=== PATIENT | male | born 1960 | race Caucasian/White ===

== ENCOUNTER → 2019-08-26 12:12 | Outpatient (BNVA) | payer SELFPAY | PROVIDERS: PCP Nurse Practitioner Family; Visit Provider Nurse Practitioner Family | DX: Z12.11 Encounter for screening for malignant neoplasm of colon; I10 Essential (primary) hypertension; K21.9 Gastro-esophageal reflux disease without esophagitis; K76.0 Fatty (change of) liver, not elsewhere classified; Z12.5 Encounter for screening for malignant neoplasm of prostate; Z68.25 Body mass index [BMI] 25.0-25.9, adult; F17.211 Nicotine dependence, cigarettes, in remission | CPT/HCPCS: 80053; 80061; 85025; G0103 ==

== ENCOUNTER → 2021-03-01 13:19 | Outpatient (BNVA) | payer SELFPAY | PROVIDERS: PCP Nurse Practitioner Family; Visit Provider Nurse Practitioner Family | DX: F41.9 Anxiety disorder, unspecified (principal); G45.9 Transient cerebral ischemic attack, unspecified; I10 Essential (primary) hypertension; Z12.5 Encounter for screening for malignant neoplasm of prostate; K21.9 Gastro-esophageal reflux disease without esophagitis; Z12.11 Encounter for screening for malignant neoplasm of colon; R94.31 Abnormal electrocardiogram [ECG] [EKG]; I65.23 Occlusion and stenosis of bilateral carotid arteries; F10.11 Alcohol abuse, in remission; Z87.891 Personal history of nicotine dependence | CPT/HCPCS: 80053; 80061; 84443; 85379; 85651 ==

== ENCOUNTER 2021-03-03 22:04 | Emergency (ER) | payer SELFPAY ==
[2021-03-03 22:12] VITALS: PULSE 78; RESP 16; TEMP 36.6; O2SAT 97; BMI 28.1
[2021-03-04 00:16] VITALS: BP 172/108; PULSE 70; RESP 16; O2SAT 97
--- NOTE | 2021-03-04 00:27 | XRR_ITS ---
PROCEDURE INFORMATION: Exam: XR Chest Exam date and time: 03/04/2021 12:27 AM Age: 60 years old Clinical indication: Other: HTN TECHNIQUE: Imaging protocol: XR of the chest. Views: 1 view. COMPARISON: CT abdomen pelvis w con* [id number] 04/03/2018 10:47 AM FINDINGS: Lungs: Emphysematous lung changes. Reticular interstitial lung appearance. Negative for space consolidation. Pleural spaces: Unremarkable. No pleural effusion. No pneumothorax. Heart/Mediastinum: Mild cardiomegaly. Bones/joints: Unremarkable. XR/XR chest 1V portable [id number] IMPRESSION: 1. Cardiomegaly. 2. Emphysema. 3. No focal acute pulmonary disease.
--- NOTE | 2021-03-04 00:27 | CTR_ITS ---
PROCEDURE INFORMATION: Exam: CT Head Without Contrast Exam date and time: 03/04/2021 12:27 AM Age: 60 years old Clinical indication: Speech disturbance; Patient HX: Expressive aphasia episode 03/01 w HX of HTN non compliant w meds; Additional info: Stroke symptoms, HTN TECHNIQUE: Imaging protocol: Computed tomography of the head without contrast. Radiation optimization: All CT scans at this facility use at least one of these dose optimization techniques: automated exposure control; mA and/or kV adjustment per patient size (includes targeted exams where dose is matched to clinical indication); or iterative reconstruction. COMPARISON: No relevant prior studies available. RADIATION DOSE METRICS: Total DLP (mGy-cm): 830.49 FINDINGS: Brain: Large region of decreased attenuation in the left frontal lobe with lack of differentiation of ron matter and white matter interfaces and localized cerebral sulcal effacement. No intracranial hemorrhage. No midline shift of brain. Cerebral ventricles: No ventriculomegaly. Paranasal sinuses: Visualized sinuses are unremarkable. No fluid levels. Mastoid air cells: Visualized mastoid air cells are well aerated. Bones/joints: Unremarkable. No acute fracture. Soft tissues: Unremarkable. CT/CT head wo con* [id number] IMPRESSION: 1. Ischemic infarct in the left frontal lobe is suspected in the left middle cerebral artery vascular distribution. Brain MRI correlation is recommended. 2. Negative for intracranial hemorrhage.
--- NOTE | 2021-03-04 00:32 | W.ED.GENADLT ---
HPI - General Adult General: Chief complaint: General Medical Stated complaint: High Blood Pressure\Friday had stoke Time Seen by Provider: 03/04/21 00:02 History of Present Illness: HPI narrative: 60-year-old male with a history of hypertension. His notes that he had quit taking his blood pressure medication in July. He was seen on in the PCP office after having woken up with expressive aphasia. This has resolved. No other stroke symptoms such as dizziness, weakness, facial problems, or blurry vision. His physician ordered several outpatient tests, and placed him back on blood pressure medication including lisinopril 20, amlodipine 5, and clonidine for breakthrough hypertension. He has taken 2 clonidine today for hypertension, and despite this, has had elevated blood pressure. No return of any stroke symptoms. Onset (ago): day(s) Radiation: non-radiation Quality: other Pain Consistency: other Associated symptoms: Reports rash (Was placed on cephalexin after leukocytosis found); Deny chest pain, confusion, cough, diaphoresis, dyspnea, fevers/chills, headache(s), nausea, palpitations, syncope, vomiting or weakness Review of Systems Const: Denies: diaphoresis Card: Denies: chest pain, palpitations or syncope Resp: Denies: dyspnea GI: Denies: nausea or vomiting Skin/Breast: Reports: rash (Was placed on cephalexin after leukocytosis found) Neuro: Denies: headache(s) or confusion [facility] ED PFSH: Medical History (Updated 03/04/21 @ 02:19 by Matty Holliday DO) Anxiety Fatty infiltration of liver GERD (gastroesophageal reflux disease) Hx of pancreatitis Hx of urethral stricture Hypertension Surgical History Hx of appendectomy Social History Smoking and tobacco status: former smoker Second hand smoke exposure: No Alcohol intake: never Lives independently: Yes Household members: spouse Housing: House Marital status: Current occupational status: employed Current occupation: self History of recent travel: No Current gender identity: Male Physical Exam Const: GENERAL APPEARANCE: cooperative; not ill appearing ORIENTATION/CONSCIOUSNESS: Yes awake, Yes oriented to person and Yes oriented to place HENMT: COMMON NORMALS: normocephalic HEAD & SCALP: normocephalic Eye: COMMON NORMALS: Equal, round and reactive pupils present and EOMs intact bilaterally PUPIL: Yes Equal, round and reactive pupils present Chest: COMMONS NORMALS: normal inspection of the chest Resp: COMMON NORMALS: normal respiratory effort Cardio: COMMON NORMALS: regular rate and regular rhythm RATE: regular rate RHYTHM: regular rhythm HEART SOUNDS: Murmur heart sound present systolic GI: COMMON NORMALS: Normal to inspection, nondistended, normoactive bowel sounds present and Soft to palpation PALPATION: Yes Soft to palpation Extremity: COMMON NORMALS: no pedal edema Neuro: SENSORIUM/ORIENTATION: Yes oriented to person and Yes oriented to place CRANIAL NERVES: Yes CN normal except as noted SPEECH: speech normal MOTOR EXAM: 5/5 motor strength present throughout and Pronator motor function not present Course Vital Signs: Vital signs: Vital Signs Temperature 98 F 03/03/21 22:12 Pulse Rate 70 03/04/21 00:16 Respiratory Rate 16 03/04/21 00:16 Blood Pressure 172/108 03/04/21 00:16 Pulse Oximetry 97 03/04/21 00:16 MDM - General Adult MDM Narrative: Medical decision making narrative: 60-year-old male presenting with high blood pressure. He had stroke symptoms 2 days ago. These are completely resolved. CT, however, shows significant left frontal region ischemic area consistent with stroke. CBC is normal. Sodium is 132. Otherwise BMP is essentially normal. His blood pressure is 138/87 following administration of medication. He is on appropriate treatment for secondary prevention, placed by his PCP including full dose aspirin and atorvastatin. We will double his doses of lisinopril and amlodipine for better blood pressure control, and hopefully to eliminate need for clonidine. He will check his blood pressure twice daily. He has outpatient echo and carotid ultrasounds ordered as an outpatient Lab Data: Labs: Lab Results 03/04/21 03/04/21 03/04/21 00:27 00:27 01:00 WBC 8.2 10^3/uL 10^3/ uL (4.0-10.0) RBC 4.82 10^6/uL 10^6 /uL (4.1-5.3) Hgb 14.2 g/dL g/dL (11.7-16.6) Hct 42.5 % % (42.0-52.0) MCV 88.2 fl fl (80-94) MCH 29.5 pg pg (28.0-34.0) MCHC 33.4 g/dL g/dL (30.0-36.0) RDW 13.0 % % (12.1-15.1) Plt Count 335 10^3/cmm 10^3 /cmm (130-400) MPV 10.5 fL H fL (7.4-10.4) Neut % (Auto) 53.7 % % Lymph % (Auto) 19.1 % % [place] % (Auto) 13.8 % % Eos % (Auto) 11.5 % % Baso % (Auto) 1.3 % % Neut # (Auto) 4.37 10^3/uL 10^3 /uL (1.8-7.7) Lymph # (Auto) 1.6 10^3/uL 10^3/ uL (0.8-4.8) [place] # (Auto) 1.1 10^3/uL H 10^ 3/uL (0.2-0.9) Eos # (Auto) 0.9 10^3/uL H 10^ 3/uL (0.0-0.8) Baso # (Auto) 0.1 10^3/uL 10^3/ uL (0.0-0.1) Nucleated RBC % (a uto) 0 % % Nucleated RBCs # 0.0 /100WBC /100W BC Sodium 132 mmol/L L mmol /L (136-145) Potassium 4.5 mmol/L mmol/L (3.5-5.1) Chloride 97 mmol/L L mmol/ L (98-107) Carbon Dioxide 23 mmol/L mmol/L (22-29) Anion Gap 16.5 (5-19) BUN 15 mg/dL mg/dL (8-23) Creatinine 0.8 mg/dL mg/dL (0.7-1.2) GFR Calculation 98.6 mL/min mL/mi n (90-130) Glucose 93 mg/dL mg/dL (65-115) Calculated Osmolal ity 275 mOsm/kg L mOs m/kg (285-295) Calcium 8.9 mg/dL mg/dL (8.5-10.5) Total Bilirubin 0.3 mg/dL mg/dL (0.15-1.2) AST 22 U/L U/L (0-40) ALT 21 U/L U/L (0-41) Alkaline Phosphata se 111 IU/L IU/L (40-130) Creatine Kinase 86 U/L U/L (39-308) NT-Pro-B Natriuret Pep 74 pg/mL pg/mL (0-125) Total Protein 6.8 g/dL g/dL (6.6-8.7) Albumin 4.1 g/dL g/dL (3.5-5.2) Globulin 2.7 g/dL g/dL (1.3-4.6) Urine Color Yellow (Yellow) Urine Appearance Clear (CLEAR) Urine pH 6 (5-7) Ur Specific Gravit y 1.010 (1.005-1.030) Urine Protein Neg (Negative) Urine Glucose (UA) Norm (Normal) Urine Ketones Negative (Negative) Urine Blood Neg (Negative) Urine Nitrate Negative (Negative) Urine Bilirubin Neg (Negative) Prot Sulfosalicyli c Acd Positive (Negative) Urine Urobilinogen Norm mg/dL mg/dL (Negative) Ur Leukocyte Rae ase Negative (Negative) Discharge Plan Discharge Patient Disposition: Home Clinical Impression: Ischemic stroke Hypertension Qualifiers: Hypertension type: unspecified Qualified Code(s): I10 - Essential (primary) hypertension Condition: Stable Prescriptions: New amlodipine 10 mg tablet 10 mg PO DAILY Qty: 30 RF: 0 lisinopril 40 mg tablet 40 mg PO DAILY Qty: 30 RF: 0 Discontinued lisinopril 20 mg tablet 20 mg PO DAILY 90 Days Qty: 90 RF: 1 amlodipine 5 mg tablet 5 mg PO DAILY 30 Days Qty: 30 RF: 0 cephalexin 500 mg capsule 500 mg PO TID 10 Days Qty: 30 RF: 0 No Action pantoprazole [Protonix] 40 mg tablet,delayed release (DR/EC) 40 mg PO DAILY 90 Days Qty: 90 RF: 0 atorvastatin 40 mg tablet 40 mg PO .QHS 90 Days Qty: 90 RF: 0 aspirin 325 mg tablet 325 mg PO .QHS 90 Days Qty: 90 RF: 0 clonidine HCl 0.1 mg tablet 0.1 mg PO TID PRN (Reason: hypertensive emergency SBP >180 DBP > 100) Qty: 90 RF: 0 Discharge Orders: Discharge ED (Routine); Ordered 03/04/21 Ordered By: Matty Holliday Referrals: Alicia Roberts FNP [Primary Care Provider] - 1-3 days Patient Instructions: Ischemic Stroke (DC), Hypertension (ED) Activity Restrictions/Additional Instructions: Return for any return of symptoms such as language problems, dizziness, vision problems, weakness. Return also for chest pain, shortness of breath, or any other concerns. Doubled the doses of your amlodipine and lisinopril that you have at home. This would be taking 2 5 mg pills of amlodipine to equal 10 mg, and to 20 mg pills of lisinopril to equal 40 mg. Scripts have been written for you for new dosages when you run out. Continue your full dose aspirin and atorvastatin as prescribed by your PCP. Monitor your blood pressure twice daily, and report numbers to your physician next week. Coding Level of Care Code ED Sugar Refiner for Hima Fwd Exam Comprehensive
[2021-03-04] MEDS: amlodipine 10 mg Tablet PO (01:02)
[2021-03-04] MEDS: labetalol 5 mg/mL SDV 20mL 20 MG IVP (01:02)
[2021-03-04] MEDS: enalaprilat 1.25 mg/mL Inj IVP (01:02)
[2021-03-04 01:10] LABS: Add Urine Microscopic? NO; Charge for UA Resulting for Rev
[2021-03-04 01:11] LABS: Bilirubin Urine Neg (Negative); Blood Urine Neg (Negative); Glucose Urine UA Norm (Normal); Ketones Urine Negative (Negative); Leukocyte Esterase Urine Negative (Negative); Nitrate Urine Negative (Negative); Protein Urine Neg (Negative); Sulfosalicylic Acid Urine Positive (Negative); Urine Appearance Clear (CLEAR); Urine Color Yellow (Yellow); Urobilinogen Urine Norm (Negative); pH Urine 6 (5-7)
[2021-03-04 01:14] LABS: Basophils # 0.1 10^3/uL (0.0-0.1); Basophils % 1.3 %; Eosinophils # 0.9 10^3/uL (0.0-0.8); Eosinophils % 11.5 %; Hematocrit 42.5 % (42.0-52.0); Hemoglobin 14.2 g/dL (11.7-16.6); Lymphocytes # 1.6 10^3/uL (0.8-4.8); Lymphocytes % 19.1 %; Mean Corpuscular HGB Conc 33.4 g/dL (30.0-36.0); Mean Corpuscular Hemoglobin 29.5 pg (28.0-34.0); Mean Corpuscular Volume 88.2 fl (80-94); Mean Platelet Volume 10.5 fL (7.4-10.4); Monocytes # 1.1 10^3/uL (0.2-0.9); Monocytes % 13.8 %; Neutrophils # 4.37 10^3/uL (1.8-7.7); Neutrophils % 53.7 %; Nucleated Red Blood Cells % 0 %; Platelet Count 335 10^3/cmm (130-400); Red Blood Count 4.82 10^6/uL (4.1-5.3); White Blood Count 8.2 10^3/uL (4.0-10.0)
[2021-03-04 01:48] LABS: Alanine Aminotransferase 21 U/L (0-41); Albumin Level 4.1 g/dL (3.5-5.2); Alkaline Phosphatase 111 IU/L (40-130); Blood Urea Nitrogen 15 mg/dL (8-23); Calcium 8.9 mg/dL (8.5-10.5); Carbon Dioxide 23 mmol/L (22-29); Chloride 97 mmol/L (98-107); Creatine Phosphokinase 86 U/L (39-308); Globulin 2.7 g/dL (1.3-4.6); Glomerular Filtration Rate 98.6 mL/min (90-130); Glucose 93 mg/dL (65-115); NT Pro B Type Natriuretic Pept 74 pg/mL (0-125); Osmolality Calculated 275 mOsm/kg (285-295); Sodium 132 mmol/L (136-145); Total Bilirubin 0.3 mg/dL (0.15-1.2); Total Protein 6.8 g/dL (6.6-8.7)
[2021-03-04 01:53] LABS: Anion Gap 16.5 (5-19); Aspartate Amino Transferase 22 U/L (0-40); Potassium 4.5 mmol/L (3.5-5.1)
[2021-03-04 02:39] VITALS: BP 140/87; PULSE 71; RESP 16; O2SAT 97
[2021-03-04] MEDS: labetalol 5 mg/mL SDV 20mL 10 MG IVP (02:39)
== END 2021-03-04 02:42 | disposition home or self-care (01) ==
PROVIDERS: Emergency Provider Emergency Medicine; PCP Nurse Practitioner Family
DX: I10 Essential (primary) hypertension (principal); I63.89 Other cerebral infarction; Z79.82 Long term (current) use of aspirin; Z87.891 Personal history of nicotine dependence
CPT/HCPCS: 70450; 71045; 80053; 81003; 82550; 83880; 85025; 96374; 96375; 96376; 99283; J3490

== ENCOUNTER → 2021-03-08 13:53 | Outpatient (BNVA) | payer SELFPAY | PROVIDERS: PCP Nurse Practitioner Family; Visit Provider Nurse Practitioner Family | DX: E87.1 Hypo-osmolality and hyponatremia (principal); I10 Essential (primary) hypertension; I63.9 Cerebral infarction, unspecified; D72.829 Elevated white blood cell count, unspecified; W57.XXXA Bitten or stung by nonvenomous insect and other nonvenomous arthropods, initial encounter; R53.83 Other fatigue; R53.1 Weakness; M25.50 Pain in unspecified joint | CPT/HCPCS: 80053; 86618; 86666; 86757 ==

== ENCOUNTER 2021-03-19 21:11 | Emergency (ER) | payer SELFPAY ==
--- NOTE | 2021-03-19 21:17 | XRR_ITS ---
PROCEDURE INFORMATION: Exam: XR Chest Exam date and time: 03/19/2021 9:17 PM Age: 60 years old Clinical indication: Pain; On breathing; Additional info: Cp TECHNIQUE: Imaging protocol: XR of the chest. Views: 1 view. COMPARISON: CR (CHEST, ) 03/04/2021 12:50 AM FINDINGS: Lungs: Increased ground-glass opacity in the central and peripheral left lung. Background of diffuse interstitial scarring in both lungs. Pleural spaces: Unremarkable. No pleural effusion. No pneumothorax. Heart/Mediastinum: Unremarkable. No cardiomegaly. Bones/joints: Unremarkable. XR/XR chest 1V portable [id number] IMPRESSION: 1. Increased airspace opacities in the left lung is suspicious for pneumonia.
--- NOTE | 2021-03-19 21:17 | ECG_ITS ---
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 Measurements Intervals [place] Rate: 63 P: 63 NE: 165 QRS: 80 QRSD: 102 T: 98 QT: 418 QTc: 429 Interpretive Statements SINUS RHYTHM Compared to ECG 03/19/2021 21:27:04 No significant changes Electronically Signed On 03-20-2021 17:12:37 SPINNING SUPERVISOR by Tha Dunn M.D. [id number]
[2021-03-19 21:28] VITALS: BP 179/110; PULSE 71; RESP 18; TEMP 36.7; O2SAT 97; BMI 25.6
--- NOTE | 2021-03-19 22:21 | W.ED.CHESTPA ---
HPI - Chest Pain General: Chief Complaint: Chest Pain Stated Complaint: CP, STROKE X 1 WK AGO, HTN Time Seen by Provider: 03/19/21 22:12 Source: patient Mode of arrival: ambulatory Limitations: no limitations History of Present Illness: 60-year-old male who states that he has been having some chest pain and palpitations since 6:30 PM. He states that his blood pressure running a little high at home and started with that. He states that since is resolved he has no pain currently. He denies any shortness of breath or diaphoresis with this. He denies any vomiting or diarrhea. Associated symptoms: Reports palpitations; Deny abdominal pain, dyspnea, fever(s), nausea or vomiting Review of Systems Const: Denies: fever(s), chills, body aches or change in appetite Eyes: Denies: blurry vision or eye discomfort ENMT: Denies: throat pain or dental pain Card: Reports: chest pain and palpitations Resp: Denies: dyspnea GI: Denies: abdominal pain, nausea, vomiting or diarrhea : Denies: dysuria Musc: Denies: neck pain or back pain Skin/Breast: Denies: rash Neuro: Denies: headache(s) Psych: Denies: depression Herbert/Lymph: Denies: easy bruising All/Imm: Denies: urticaria PFSH ED PFSH: Medical History Anxiety Fatty infiltration of liver GERD (gastroesophageal reflux disease) Hx of pancreatitis Hx of urethral stricture Hypertension Surgical History Hx of appendectomy Social History Smoking and tobacco status: never smoked Second hand smoke exposure: No Alcohol intake: never Lives independently: Yes Household members: spouse Housing: House Marital status: Current occupational status: employed Current occupation: self History of recent travel: No Current gender identity: Male Physical Exam Const: COMMON NORMALS: no acute distress, patient oriented x3 and healthy appearing HENMT: COMMON NORMALS: normocephalic and atraumatic HEAD & SCALP: normocephalic and atraumatic Eye: COMMON NORMALS: Equal, round and reactive pupils present and EOMs intact bilaterally PUPIL: Yes Equal, round and reactive pupils present Neck/C-Spine: COMMON NORMALS: full ROM and supple Chest: COMMONS NORMALS: normal inspection of the chest and normal palpation of entire chest wall Resp: COMMON NORMALS: normal respiratory effort, No retractions, No use of accessory muscles and clear to auscultation bilaterally AUSCULTATION: clear to auscultation bilaterally Cardio: COMMON NORMALS: regular rate, regular rhythm and No murmurs present (Cardio) RATE: regular rate RHYTHM: regular rhythm GI: COMMON NORMALS: Normal to inspection, nondistended, normoactive bowel sounds present, Soft to palpation, non-tender and no masses PALPATION: Yes Soft to palpation Extremity: COMMON NORMALS: normal to inspection and full ROM Neuro: COMMON NORMALS: patient oriented x3, moves all extremities and no focal motor deficits Psych: COMMON NORMALS: mental status grossly normal, Normal thought process present and cooperative THOUGHT PROCESS: Normal thought process present Skin: COMMON NORMALS: no rashes or lesions noted and no wounds GENERAL SKIN EXAM: no rashes or lesions noted Course Vital Signs: Vital signs: Vital Signs Temperature 98.1 F 03/19/21 21:28 Pulse Rate 71 03/19/21 21:28 Respiratory Rate 18 03/19/21 21:28 Blood Pressure 179/110 03/19/21 21:28 Pulse Oximetry 97 03/19/21 21:28 MDM - Chest Pain Medical Decision Making Patient presents for chest pains atypical in nature is been pain-free Shannon here repeat troponin here showed no change. Blood pressure is improved we will start him on metoprolol for his blood pressure he is to monitor his blood pressure 3 times a day and follow-up with his PCP next week he is return if worsening he understands agrees to plan. Lab Data : 03/19/21 22:18 03/19/21 22:18 Radiology Impressions Chest X-Ray 03/19/21 21:17 IMPRESSION: 1. Increased airspace opacities in the left lung is suspicious for pneumonia. Laboratory Results WBC 10.4 10^3/uL (4.0-10.0) H 03/19/21 22:18 RBC 5.27 10^6/uL (4.1-5.3) 03/19/21 22:18 Hgb 14.9 g/dL (11.7-16.6) 03/19/21 22:18 Hct 45.0 % (42.0-52.0) 03/19/21 22:18 MCV 85.4 fl (80-94) 03/19/21 22:18 MCH 28.3 pg (28.0-34.0) 03/19/21:18 MCHC 33.1 g/dL (30.0-36.0) 03/19/21:18 RDW 12.5 % (12.1-15.1) 03/19/21:18 Plt Count 407 10^3/cmm (130-400) H 03/19/21 22:18 MPV 9.7 fL (7.4-10.4) 03/19/21:18 Neut % (Auto) 70.0 % 03/19/21 22:18 Lymph % (Auto) 17.1 % 03/19/21:18 [place] % (Auto) 8.4 % 03/19/21:18 Eos % (Auto) 2.8 % 03/19/21:18 Baso % (Auto) 0.6 % 03/19/21:18 Neut # (Auto) 7.27 10^3/uL (1.8-7.7) 03/19/21 22:18 Lymph # (Auto) 1.8 10^3/uL (0.8-4.8) 03/19/21:18 [place] # (Auto) 0.9 10^3/uL (0.2-0.9) 03/19/21:18 Eos # (Auto) 0.3 10^3/uL (0.0-0.8) 03/19/21:18 Baso # (Auto) 0.1 10^3/uL (0.0-0.1) 03/19/21:18 Nucleated RBC % (auto) 0 % 03/19/21: Nucleated RBCs # 0.0 /100WBC 03/19/21 22:18 Sodium 129 mmol/L (136-145) L 03/19/21 22:18 Potassium 4.4 mmol/L (3.5-5.1) 03/19/21 22:18 Chloride 94 mmol/L (98-107) L 03/19/21 22:18 Carbon Dioxide 22 mmol/L (22-29) 03/19/21 22:18 Anion Gap 17.4 (5-19) 03/19/21 22:18 BUN 15 mg/dL (8-23) 03/19/21 22:18 Creatinine 0.6 mg/dL (0.7-1.2) L 03/19/21 22:18 GFR Calculation 137.4 mL/min (90-130) H 03/19/21 22:18 Glucose 100 mg/dL (65-115) 03/19/21 22:18 Calculated Osmolality 269 mOsm/kg (285-295) L 03/19/21 22:18 Calcium 8.6 mg/dL (8.5-10.5) 03/19/21 22:18 Total Bilirubin 0.6 mg/dL (0.15-1.2) 03/19/21 22:18 AST 23 U/L (0-40) 03/19/21 22:18 ALT 28 U/L (0-41) 03/19/21 22:18 Alkaline Phosphatase 141 IU/L (40-130) H 03/19/21 22:18 Troponin T Baseline 20 ng/L (0-15) H 03/19/21 22:18 Troponin T 120 Minute 18.76 ng/L (0-15) H 03/20/21 00:01 Delta Troponin T -1.24 ABS# (0-10) L 03/20/21 00:01 Total Protein 6.9 g/dL (6.6-8.7) 03/19/21 22:18 Albumin 3.9 g/dL (3.5-5.2) 03/19/21 22:18 Globulin 3.0 g/dL (1.3-4.6) 03/19/21 22:18 EKG Data EKG 1: I personally reviewed and interpreted this EKG as follows: EKG interpretation date: 03/19/21 EKG interpretation time: 21:27 Interpretation: nsr hr [address] or t wave abnormalities qrs 101 qtc 408 EKG 2: I personally reviewed and interpreted this EKG as follows: EKG interpretation date: 03/19/21 EKG interpretation time: 22:50 Interpretation: nsr hr [address] or t wave abnormalities qrs 102 qtc 425 Discharge Plan Discharge Patient Disposition: Home Clinical Impression: Chest pain, Hypertension Condition: Stable Prescriptions: New metoprolol tartrate 25 mg tablet 25 mg PO BID Qty: 60 0RF No Action albuterol sulfate [ProAir HFA] 90 mcg/actuation HFA aerosol inhaler 2 puff inhalation QID PRN (Reason: shortness of breath or wheezing) Qty: 8.5 6RF budesonide-formoterol [Symbicort] 160-4.5 mcg/actuation HFA aerosol inhaler 2 puff inhalation Q12H Qty: 10.2 6RF pantoprazole [Protonix] 40 mg tablet,delayed release (DR/EC) 40 mg PO DAILY 90 Days Qty: 90 0RF atorvastatin 40 mg tablet 40 mg PO .QHS 90 Days Qty: 90 0RF aspirin 325 mg tablet 325 mg PO .QHS 90 Days Qty: 90 0RF clonidine HCl 0.1 mg tablet 0.1 mg PO TID PRN (Reason: hypertensive emergency SBP >180 DBP > 100) Qty: 90 0RF methylprednisolone [Medrol (Eren)] 4 mg tablets,dose pack See Rx Instructions PO PER PKG DIR Qty: 21 0RF Rx Instructions: PO PER PKG DIR amlodipine 10 mg tablet 10 mg PO DAILY Qty: 30 0RF lisinopril 40 mg tablet 40 mg PO DAILY Qty: 30 0RF Discharge Orders: Discharge ED (Routine); Ordered 03/20/21 Ordered By: Vinita Pineda Referrals: Alicia Roberts FNP [Primary Care Provider] - 1-3 days Discharge Diet: Advance as tolerated Discharge Activity: Use walker/crutches as instructed Patient Instructions: Chest Pain (ED), Hypertension (ED) Coding Level of Care Code ED Physical Metallurgist for Chg Fwd Exam Comprehensive
[2021-03-19] MEDS: labetalol 5 mg/mL SDV 20mL 10 MG IVP (22:26)
[2021-03-19 22:28] LABS: Basophils # 0.1 10^3/uL (0.0-0.1); Basophils % 0.6 %; Eosinophils # 0.3 10^3/uL (0.0-0.8); Eosinophils % 2.8 %; Hemoglobin 14.9 g/dL (11.7-16.6); Lymphocytes # 1.8 10^3/uL (0.8-4.8); Lymphocytes % 17.1 %; Mean Corpuscular HGB Conc 33.1 g/dL (30.0-36.0); Mean Corpuscular Hemoglobin 28.3 pg (28.0-34.0); Mean Corpuscular Volume 85.4 fl (80-94); Mean Platelet Volume 9.7 fL (7.4-10.4); Monocytes # 0.9 10^3/uL (0.2-0.9); Monocytes % 8.4 %; Neutrophils # 7.27 10^3/uL (1.8-7.7); Nucleated Red Blood Cells % 0 %; Platelet Count 407 10^3/cmm (130-400); Red Blood Count 5.27 10^6/uL (4.1-5.3); Red Cell Distribution Width 12.5 % (12.1-15.1); White Blood Count 10.4 10^3/uL (4.0-10.0)
[2021-03-19 22:54] LABS: Troponin(5th) Baseline 20 ng/L (0-15)
[2021-03-19 22:57] LABS: Alanine Aminotransferase 28 U/L (0-41); Albumin Level 3.9 g/dL (3.5-5.2); Alkaline Phosphatase 141 IU/L (40-130); Anion Gap 17.4 (5-19); Aspartate Amino Transferase 23 U/L (0-40); Blood Urea Nitrogen 15 mg/dL (8-23); Calcium 8.6 mg/dL (8.5-10.5); Carbon Dioxide 22 mmol/L (22-29); Chloride 94 mmol/L (98-107); Glomerular Filtration Rate 137.4 mL/min (90-130); Glucose 100 mg/dL (65-115); Osmolality Calculated 269 mOsm/kg (285-295); Potassium 4.4 mmol/L (3.5-5.1); Sodium 129 mmol/L (136-145); Total Bilirubin 0.6 mg/dL (0.15-1.2); Total Protein 6.9 g/dL (6.6-8.7)
--- NOTE | 2021-03-19 23:17 | ECG_ITS ---
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 Measurements Intervals [place] Rate: 71 P: 62 NE: 156 QRS: 70 QRSD: 101 T: 97 QT: 386 QTc: 421 Interpretive Statements SINUS RHYTHM Compared to ECG 04/03/2018 17:59:55 No significant changes Electronically Signed On 03-20-2021 5:18:13 HONEY PROCESSOR by Leesa Shah M.D. [id number]
[2021-03-20 00:33] LABS: Troponin 5 2HR 18.76 ng/L (0-15)
[2021-03-20 00:35] LABS: Troponin 5 2HR Delta -1.24 ABS# (0-10)
== END 2021-03-20 00:44 | disposition home or self-care (01) ==
PROVIDERS: Emergency Provider Emergency Medicine; PCP Nurse Practitioner Family
DX: R07.9 Chest pain, unspecified (principal); I10 Essential (primary) hypertension; Z79.82 Long term (current) use of aspirin
CPT/HCPCS: 36415; 71045; 80053; 84484; 85025; 93005; 96374; 99283; J3490

== ENCOUNTER 2021-03-28 08:44 | Outpatient (CLI) | payer SELFPAY ==
--- NOTE | 2021-03-28 09:00 | USCV_ITS ---
EricaThor laird Age: 60 Gender: M : 1960 Exam Date: 03/28/2021 09:20 Ordering Phys: Kristen Barillas NP Technologist: Exam Location: [facility] – [place], [place] Indication: TIA / HTN Risk Factors: Previous Vascular Surgery: Right Brachial BP: / Left Brachial BP: / Right Left Velocity (cm/s) Spectral Plaque Velocity (cm/s) Spectral Plaque Syst/Diast Broadening Syst/Diast Broadening 46.00/ 12.50 Prox CCA 52.50 / 10.50 40.80/ 13.80 Mid CCA 48.70 / 13.40 38.50/ 16.20 Hetro Distal CCA 31.50 / 7.20 Hetro 44.20/ 16.20 Hetro Prox ICA 44.10 / 11.50 Hetro 54.40/ 19.20 Mid ICA 64.00 / 19.90 48.30/ 12.50 Distal ICA 59.70 / 23.50 92.50 ECA 107.00 1.18 ICA/CCA 1.22 Antegrade Vertebral Antegrade 27.70/ 7.60 cm/s 32.00/ 10.90 cm/s Tri Subclavian Tri 54.40 175.1 0 CONCLUSIONS Right ICA stenosis <50%. Moderate calcified atheromatous plaque right carotid bulb/ICA. Left ICA stenosis <50%. Moderate calcified atheromatous plaque left carotid bulb/ICA. Normal antegrade Doppler flow noted in the right vertebral artery. Normal antegrade Doppler flow noted in the left vertebral artery. Leo Pressley MD (Electronically Signed) Final Date: 02 April 2021 10:51 S
--- NOTE | 2021-03-28 09:45 | USCV_ITS ---
Thor Maldonado Age: 60 Gender: M : 1960 Exam Date: 03/28/2021 08:57 Ordering Phys: Kristen Barillas NP Technologist: [place] [facility] [place]: [place]IA / HTN BP: 154 / 90 HR: 62 Rhythm: Sinus Technical Quality: Adequate MEASUREMENTS (Male / Female) Normal Values 2D ECHO LV Diastolic Diameter PLAX 4.4 cm 4.2 - 5.9 / 3.9 - 5.3 cm LV Systolic Diameter PLAX 3.1 cm IVS Diastolic Thickness 1.1 cm 0.6 - 1.0 / 0.6 - 0.9 cm IVS Systolic Thickness 1.5 cm LVPW Diastolic Thickness 1.3 cm 0.6 - 1.0 / 0.6 - 0.9 cm LVPW Systolic Thickness 1.6 cm LVOT Diameter 2.0 cm LV Ejection Fraction 2D Teich 57.1 % LV Ejection Fraction MOD 2C 58.8 % LV Ejection Fraction 2C AL 58.9 % LA Diameter 3.7 cm LA Width 2.5 cm Aorta at Sinotubular Diameter 3.1 cm M-MODE Aortic Annulus Diameter 3.1 cm LA Ao Ratio MM 1.2 MV E Point Septal Separation 0.9 cm DOPPLER AV Peak Velocity 374.0 cm/s LVOT Peak Velocity 96.0 cm/s AV Area Cont Eq vti 0.7 cm squared AV Area Cont Eq pk 0.8 cm squared MV Area PHT 2.9 cm squared Mitral E to A Ratio 0.7 MV E' Velocity 37.5 cm/s Mitral E to MV E' Ratio 11.8 Mitral E to LV E' Lateral Ratio 11.4 Mitral E to LV E' Septal Ratio 12.2 TR Peak Velocity 293.7 cm/s TR Peak Gradient 34.5 mmHg TV Peak E Velocity 97.0 cm/s Right Atrial Pressure 3.0 mmHg Pulmonary Artery Systolic Pressu 37.5 mmHg PV Peak Velocity 91.0 cm/s RV Acceleration Time 0.1 s FINDINGS Left Ventricle Normal left ventricular size. LV systolic function is normal with EF of 55-60%. No regional wall motion abnormalities. Grade 1 diastolic dysfunction Right Ventricle The right ventricle is normal in size and function. Right Atrium The right atrium is normal in size. Left Atrium The left atrium is normal in size. Mitral Valve Structurally normal mitral valve without significant stenosis or prolapse. There is mild mitral regurgitation. Aortic Valve Aortic valve is thickened. By continuity equation, at least moderate aortic stenosis. Aortic valve area appears to less than 1 cm squared with mean gradient across the aortic valve of 20 mmHg. However aortic valve area could be misleading because of inadequate visualization of the LVOT. There is mild aortic regurgitation. Tricuspid Valve Structurally normal tricuspid valve without significant stenosis or regurgitation. Pulmonary artery systolic pressure is normal. Pulmonic Valve Structurally normal pulmonic valve without significant stenosis. There is mild pulmonic regurgitation. Pericardium Normal pericardium without effusion. Aorta Normal ascending aorta dimension. CONCLUSIONS LV systolic function is normal with EF 55 to 60%. Grade 1 diastolic dysfunction. Mild mitral regurgitation. Aortic valve is thickened and calcified. At least moderate aortic stenosis. Aortic valve area appears to be less than 1 cm squared with mean gradient across aortic valve of 20 mmHg. However aortic valve area could be misleading because of inadequate visualization of the LVOT. Mild aortic regurgitation Mild pulmonic regurgitation Compared to prior echocardiogram from 03/20/2018, aortic stenosis has progressed and is atleast moderate now Tha Dunn MD (Electronically Signed) Final Date: 05 April 2021 11:18 S
== END 2021-03-28 08:45 | disposition home or self-care (01) ==
LOC: RAD 08:46
PROVIDERS: PCP Nurse Practitioner Family; Visit Provider Nurse Practitioner Family
DX: G45.9 Transient cerebral ischemic attack, unspecified; I10 Essential (primary) hypertension; R94.31 Abnormal electrocardiogram [ECG] [EKG]
CPT/HCPCS: 93306; 93880

== ENCOUNTER → 2021-07-04 09:58 | Outpatient (BNVA) | payer SELFPAY | PROVIDERS: PCP Nurse Practitioner Family | DX: I10 Essential (primary) hypertension (principal); K21.9 Gastro-esophageal reflux disease without esophagitis; K76.0 Fatty (change of) liver, not elsewhere classified; R00.2 Palpitations; F41.9 Anxiety disorder, unspecified; G45.9 Transient cerebral ischemic attack, unspecified; E87.1 Hypo-osmolality and hyponatremia | CPT/HCPCS: 80053; 80061; 85025 ==

== ENCOUNTER → 2022-01-01 09:36 | Outpatient (BNVA) | payer SELFPAY | PROVIDERS: PCP Nurse Practitioner Family; Visit Provider Nurse Practitioner Family | DX: F41.9 Anxiety disorder, unspecified (principal); K21.9 Gastro-esophageal reflux disease without esophagitis; K76.0 Fatty (change of) liver, not elsewhere classified; G45.9 Transient cerebral ischemic attack, unspecified; I10 Essential (primary) hypertension; R00.2 Palpitations; R07.9 Chest pain, unspecified; R53.1 Weakness; J06.9 Acute upper respiratory infection, unspecified | CPT/HCPCS: 80053; 80061 ==

== ENCOUNTER → 2022-07-09 10:26 | Outpatient (BNVA) | payer MEDICAID, SELFPAY | PROVIDERS: PCP Nurse Practitioner Family; Visit Provider Nurse Practitioner Family | DX: K21.9 Gastro-esophageal reflux disease without esophagitis (principal); I10 Essential (primary) hypertension; Z12.5 Encounter for screening for malignant neoplasm of prostate | CPT/HCPCS: 80053; 80061; G0103 ==

== ENCOUNTER → 2022-07-25 09:06 | Outpatient (BNVA) | payer MEDICAID, SELFPAY | PROVIDERS: PCP Nurse Practitioner Family; Visit Provider Nurse Practitioner Family | DX: I10 Essential (primary) hypertension (principal) | CPT/HCPCS: 80053; 80061 ==

== ENCOUNTER 2022-08-07 11:57 | Outpatient (CLI) | payer MEDICAID, SELFPAY ==
--- NOTE | 2022-08-07 12:00 | USCV_ITS ---
Thor Maldonado Age: 61 Gender: M : 1960 Exam Date: 08/07/2022 12:21 Ordering Phys: Leesa Shah MD ([email or web address]) Technologist: CT Exam Location: [facility] – [place] Indication: Shortness of breath BP: 132 / 80 HR: 48 Rhythm: Sinus Technical Quality: Adequate MEASUREMENTS (Male / Female) Normal Values 2D ECHO LV Diastolic Diameter PLAX 5.2 cm 4.2 - 5.9 / 3.9 - 5.3 cm LV Systolic Diameter PLAX 3.8 cm LV Chamber Size 4.9 cm IVS Diastolic Thickness 1.0 cm 0.6 - 1.0 / 0.6 - 0.9 cm IVS Systolic Thickness 1.6 cm LVPW Diastolic Thickness 0.9 cm 0.6 - 1.0 / 0.6 - 0.9 cm LVPW Systolic Thickness 1.3 cm RV Chamber Size 3.4 cm LVOT Diameter 2.2 cm LV Ejection Fraction 2D Teich 53.5 % LV Ejection Fraction MOD 2C 49.9 % LV Ejection Fraction 2C AL 50.2 % LA Diameter 4.0 cm LA Width 3.8 cm LA Height 5.8 cm RA Width 4.4 cm RA Height 5.1 cm Aorta at Sinotubular Diameter 3.4 cm IVC Diameter 1.5 cm M-MODE Aortic Annulus Diameter 2.8 cm LA Ao Ratio MM 1.4 MV E Point Septal Separation 0.4 cm DOPPLER AV Peak Velocity 422.0 cm/s LVOT Peak Velocity 109.0 cm/s AV Area Cont Eq vti 1.2 cm squared AV Area Cont Eq pk 1.0 cm squared MV Peak Velocity 119.0 cm/s MV Area PHT 3.2 cm squared Mitral E to A Ratio 0.8 MV E' Velocity 42.5 cm/s Mitral E to MV E' Ratio 9.0 Mitral E to LV E' Lateral Ratio 8.5 Mitral E to LV E' Septal Ratio 9.7 TR Peak Velocity 199.2 cm/s TR Peak Gradient 15.9 mmHg TR Mean Velocity 146.0 cm/s TR Mean Gradient 9.6 mmHg TR Velocity Time Integral 38.3 cm TV Peak E Velocity 79.0 cm/s Right Atrial Pressure 3.0 mmHg Pulmonary Artery Systolic Pressu 18.9 mmHg PV Peak Velocity 114.0 cm/s FINDINGS Left Ventricle Normal left ventricular size, systolic function and moderately wall thickness, with no regional wall motion abnormalities. Left ventricular ejection fraction is estimated at 70 %. Moderate concentric left ventricular hypertrophy. Grade I diastolic dysfunction (abnormal relaxation filling pattern), normal to mildly elevated filling pressures. Right Ventricle Normal right ventricular size and systolic function. Right Atrium Normal right atrial size. Left Atrium Mildly increased left atrial size. Mitral Valve Mildly thickened mitral valve. No mitral valve stenosis. Trace mitral valve regurgitation. Aortic Valve Thickened and calcified aortic valve. Moderate to severe aortic stenosis with peak velocity of 3.9 m/s, peak gradient 60 mm Hg, mean gradient 33 mm Hg and GIBRAN 1.2 cm2. DVI 0.26. Moderate aortic valve regurgitation. Tricuspid Valve Structurally normal tricuspid valve. Trace tricuspid valve regurgitation. Pulmonic Valve Pulmonic valve not well visualized. Pericardium No pericardial effusion. Aorta Normal size aortic root and proximal ascending aorta. Aortic arch measured at 38 mm. IVC Inferior vena cava not visualized. CONCLUSIONS 1. Normal left ventricular size, systolic function with no regional wall motion abnormalities. Left ventricular ejection fraction is estimated at 70 %. Moderate concentric left ventricular hypertrophy. Grade I diastolic dysfunction (abnormal relaxation filling pattern), normal to mildly elevated filling pressures. 2. Moderate to severe aortic stenosis with peak velocity of 3.9 m/s, peak gradient 60 mm Hg, mean gradient 33 mm Hg and GIBRAN 1.2 cm2. DVI 0.26. Moderate aortic valve regurgitation. 3. When compared to study dated 03/28/21, aortic valve stenosis seems to have worsened with mean gradient 22-> 33 now. Leesa Shah MD (Electronically Signed) Final Date: 14 August 2022 04:45 S
== END 2022-08-07 11:58 | disposition home or self-care (01) ==
LOC: RAD 12:00
PROVIDERS: PCP Nurse Practitioner Family; Visit Provider Internal Medicine Cardiovascular Disease
DX: R06.02 Shortness of breath (principal); I35.0 Nonrheumatic aortic (valve) stenosis; I35.1 Nonrheumatic aortic (valve) insufficiency
CPT/HCPCS: 93306

== ENCOUNTER 2023-03-04 11:05 | Outpatient (CLI) | payer MEDICAID, SELFPAY ==
--- NOTE | 2023-03-04 11:15 | USCV_ITS ---
Thor Maldonado Age: 62 Gender: M : 1960 Exam Date: 03/04/2023 11:18 Ordering Phys: Nohemi Villalobos Technologist: CT Exam Location: [facility] – [place] Indication: as BP: 140 / 90 HR: 74 Rhythm: Sinus Technical Quality: Adequate MEASUREMENTS (Male / Female) Normal Values 2D ECHO LVOT Diameter 2.0 cm LV Ejection Fraction MOD 2C 67.2 % LV Ejection Fraction 2C AL 67.9 % LA Diameter 4.4 cm Aorta at Sinotubular Diameter 2.8 cm IVC Diameter 1.6 cm M-MODE Aortic Annulus Diameter 3.6 cm LA Ao Ratio MM 1.3 MV E Point Septal Separation 0.5 cm DOPPLER AV Peak Velocity 443.0 cm/s LVOT Peak Velocity 143.0 cm/s AV Area Cont Eq vti 1.0 cm squared AV Area Cont Eq pk 1.0 cm squared MV E' Velocity 9.0 cm/s TR Peak Velocity 126.0 cm/s TR Peak Gradient 6.4 mmHg TV Peak E Velocity 71.0 cm/s Right Atrial Pressure 3.0 mmHg Pulmonary Artery Systolic Pressu 9.4 mmHg PV Peak Velocity 123.0 cm/s FINDINGS Left Ventricle Normal left ventricular size and systolic function, EF 69 %. Moderate left ventricular hypertrophy. No regional wall motion abnormalities. Grade I/IV diastolic dysfunction (abnormal relaxation filling pattern), normal to mildly elevated filling pressures. Right Ventricle The right ventricle is normal in size and function. Right Atrium The right atrium is normal in size. Left Atrium Mildly increased left atrial size. Mitral Valve Structurally normal mitral valve without significant stenosis or prolapse. There is no mitral regurgitation. Aortic Valve Moderate aortic valve calcification. [id number] aortic valve regurgitation. Severe aortic valve stenosis, mean gradient 41.6 mmHg, GIBRAN 1 cm squared. Peak velocity of 4.45 m/s with a peak gradient of 79 mmHg. Tricuspid Valve Trace tricuspid valve regurgitation. Pulmonic Valve Trace pulmonary valve regurgitation. Pericardium No pericardial effusion. Aorta Normal aortic annulus size. IVC Inferior vena cava not visualized. CONCLUSIONS Normal left ventricular size and systolic function, EF 69 %. Moderate left ventricular hypertrophy. No regional wall motion abnormalities. Grade I/IV diastolic dysfunction (abnormal relaxation filling pattern), normal to mildly elevated filling pressures. Mildly increased left atrial size. Severe aortic valve stenosis, mean gradient 41.6 mmHg, GIBRAN 1 cm squared. Peak velocity of 4.45 m/s with a peak gradient of 79 mmHg. Moderate aortic valve calcification. [id number]-[id number] aortic valve regurgitation. Trace tricuspid valve regurgitation. Estimated pulmonary artery peak systolic pressure probably within normal limits Trace of tricuspid and pulmonic regurgitation. Compared to the study from 08/07/2022, there is worsening of the aortic valve stenosis Dr Rahul Moore MD [facility] (Electronically Signed) Final Date: 07 March 2023 19:30 S
== END 2023-03-04 11:06 | disposition home or self-care (01) ==
LOC: RAD 11:07
PROVIDERS: PCP Nurse Practitioner Family; Visit Provider Nurse Practitioner Family
DX: I35.2 Nonrheumatic aortic (valve) stenosis with insufficiency (principal); I11.9 Hypertensive heart disease without heart failure; G45.9 Transient cerebral ischemic attack, unspecified
CPT/HCPCS: 93306

== ENCOUNTER 2023-08-08 08:44 | Outpatient (CLI) | payer MEDICAID, SELFPAY ==
--- NOTE | 2023-08-08 08:45 | USCV_ITS ---
Thor Maldonado Age: 62 Gender: M : 1960 Exam Date: 08/08/2023 08:57 Ordering Phys: Nohemi Villalobos Technologist: CT Exam Location: [facility] – [place] Indication: as BP: 155 / 91 HR: 71 Rhythm: Sinus Technical Quality: Adequate MEASUREMENTS (Male / Female) Normal Values 2D ECHO LVOT Diameter 2.3 cm LV Ejection Fraction MOD 2C 71.6 % LV Ejection Fraction 2C AL 73.9 % LA Diameter 4.0 cm RA Systolic Volume 4C AL 30.4 ml RA Systolic Volume 4C MOD 31.1 ml LA Sys Volume AL 41.2 cm cubed LA Sys Volume Index AL 22.1 cm cubed/m squared Aorta at Sinotubular Diameter 3.1 cm IVC Diameter 1.6 cm M-MODE LA Ao Ratio MM 1.0 AV Cusp Separation MM 1.6 cm DOPPLER AV Peak Velocity 456.0 cm/s LVOT Peak Velocity 116.0 cm/s AV Area Cont Eq vti 1.5 cm squared AV Area Cont Eq pk 1.1 cm squared MV Area PHT 2.6 cm squared Mitral E to A Ratio 0.7 TR Peak Velocity 133.0 cm/s TR Peak Gradient 7.1 mmHg TV Peak E Velocity 66.0 cm/s Right Atrial Pressure 3.0 mmHg Pulmonary Artery Systolic Pressu 10.1 mmHg PV Peak Velocity 135.0 cm/s FINDINGS Left Ventricle Normal left ventricular size and systolic function, EF 72%.mild left ventricular hypertrophy. No regional wall motion abnormalities. Grade I/IV diastolic dysfunction (abnormal relaxation filling pattern), normal to mildly elevated filling pressures. Right Ventricle The right ventricle is normal in size and function. Right Atrium The right atrium is normal in size. Left Atrium Mildly increased left atrial size. Mitral Valve Trace to mild mitral valve regurgitation. Aortic Valve Mild to moderate aortic valve regurgitation. Severe aortic valve stenosis, mean gradient 46.1 mmHg, the peak velocity was of 4.56 m/s. The valve area is calculated to be 1.4 cm squared Tricuspid Valve Trace tricuspid valve regurgitation. Pulmonic Valve Trace pulmonary valve regurgitation. Pericardium No pericardial effusion. Aorta Normal aortic annulus size. IVC Inferior vena cava not visualized. CONCLUSIONS Normal left ventricular size and systolic function, EF 72%.mild left ventricular hypertrophy. No regional wall motion abnormalities. Grade I/IV diastolic dysfunction (abnormal relaxation filling pattern), normal to mildly elevated filling pressures. Moderate to severe aortic valve stenosis-with a peak velocity of 4.56 m/s and a mean gradient of 46 mmHg. The valve area is calculated to be 1.45 cm squared Mildly increased left atrial size. Trace to mild mitral valve regurgitation. Trace tricuspid valve regurgitation. Trace pulmonary valve regurgitation. There is no pericardial effusion. There are no intracardiac masses. Compared to the study from 03/04/2023, there may not be a significant change Dr Rahul Moore MD [facility] (Electronically Signed) Final Date: 08 August 2023 13:53 S
== END 2023-08-08 08:45 | disposition home or self-care (01) ==
LOC: RAD 08:44
PROVIDERS: PCP Nurse Practitioner Family; Visit Provider Nurse Practitioner Family
DX: I35.0 Nonrheumatic aortic (valve) stenosis (principal); I50.30 Unspecified diastolic (congestive) heart failure
CPT/HCPCS: 93306

== ENCOUNTER → 2023-08-13 10:42 | Outpatient (BNVA) | payer MEDICAID, SELFPAY | PROVIDERS: PCP Nurse Practitioner Family; Visit Provider Nurse Practitioner Family | DX: I10 Essential (primary) hypertension (principal); I35.0 Nonrheumatic aortic (valve) stenosis; Z87.891 Personal history of nicotine dependence | CPT/HCPCS: 99214 ==

== ENCOUNTER → 2023-09-04 11:14 | Outpatient (BNVA) | payer MEDICAID, SELFPAY | PROVIDERS: PCP Nurse Practitioner Family; Visit Provider Nurse Practitioner Family | DX: Z12.5 Encounter for screening for malignant neoplasm of prostate (principal); E78.2 Mixed hyperlipidemia; I10 Essential (primary) hypertension; R00.2 Palpitations | CPT/HCPCS: 80053; 80061; 85025; G0103 ==

== ENCOUNTER 2023-10-16 13:54 | Outpatient (CLI) | payer MEDICAID, SELFPAY ==
--- NOTE | 2023-10-16 13:57 | XR_ITS ---
WS: [id number] Examination: XR chest 2V* [id number] Reason for Exam: URI with cough and congestion Date: 10/16/2023 Comparison: 03/19/2021 Findings: The heart is prominent in size. The mediastinum is not widened. The interstitial markings are increased more so than on the previous study I suspect a large componen t of this is chronic fibrotic change. Superimposed pneumonia in the bases cannot be excluded. XR/XR chest 2V* [id number] Impression: Bilateral prominent interstitial markings and pulmonary opacities. I suspect at least a part of this is chronic in nature however superimposed pneumonia in th e bases is a concern. Continued follow-up is recommended.
== END 2023-10-16 13:55 | disposition home or self-care (01) ==
LOC: RAD 13:56
PROVIDERS: PCP Nurse Practitioner Family; Visit Provider Nurse Practitioner Family
DX: J06.9 Acute upper respiratory infection, unspecified (principal); I51.7 Cardiomegaly; J84.89 Other specified interstitial pulmonary diseases; R91.8 Other nonspecific abnormal finding of lung field
CPT/HCPCS: 71046

== ENCOUNTER 2023-10-27 14:32 | Outpatient (CLI) | payer MEDICAID, SELFPAY ==
--- NOTE | 2023-10-27 14:45 | CT_ITS ---
WS: [id number] CT chest wo con [id number] HISTORY: continued SOB, pneuminia, ABN chest xray TECHNIQUE: Axial imaging performed through the thorax. Coronal and sagittal reformats are submitted. All CT scans at [facility] use at least one of these dose optimization techniques: automated exposure control; mA and/or kV adjustment per patient size (includes targeted exams where dose is mat ched to clinical indication); or iterative reconstruction. CONTRAST: Omnipaque 350; 100 mL IV. DLP: 310.72 mGy.cm COMPARISON: 10/16/2023 Lungs and central airway: Mild decrease in lung volumes. Bilateral honeycombing and bronchiectasis no belle in both the upper and lower lung powell. The consolidations noted on the recent radiograph are in association with the areas of fibrosis. No discrete mass or pneumonia. Pleura: No effusions. Heart and pericardium: Normal size heart with no pericardial effusion. Mediastinum and igor: Small mediastinal and hilar lymph nodes. No adenopathy. Vessels: Mild dilatation ascending aorta 4.1 cm. Mild atherosclerosis. Pulmonary artery is slightly d ilated. Chest wall and lower neck: No soft tissue masses. Upper abdomen: Small hiatal hernia. No adrenal mass. Osseous structures: Mild anterior wedging of T9. CT/CT chest wo con [id number] IMPRESSION: 1. Moderate changes of pulmonary fibrosis/UIP. Associated honeycombing and bro nchiectasis. 2. Areas of consolidation are more likely chronic/fibrosis with no identifiabl e pneumonia. 3. No mediastinal or hilar adenopathy. 4. Mild aneurysmal dilatation ascending aorta, 4.1 cm.
== END 2023-10-27 14:33 | disposition home or self-care (01) ==
LOC: RAD 14:32
PROVIDERS: PCP Nurse Practitioner Family; Visit Provider Nurse Practitioner Family
DX: R93.89 Abnormal findings on diagnostic imaging of other specified body structures (principal); J18.9 Pneumonia, unspecified organism; J43.9 Emphysema, unspecified; J84.10 Pulmonary fibrosis, unspecified; J47.9 Bronchiectasis, uncomplicated; K44.9 Diaphragmatic hernia without obstruction or gangrene; R05.1 Acute cough
CPT/HCPCS: 71250

== ENCOUNTER → 2023-12-30 11:20 | Outpatient (BNVA) | payer MEDICAID, SELFPAY | PROVIDERS: Visit Provider Nurse Practitioner Family | DX: I10 Essential (primary) hypertension (principal); I35.0 Nonrheumatic aortic (valve) stenosis; E78.2 Mixed hyperlipidemia; R06.02 Shortness of breath; J43.9 Emphysema, unspecified | CPT/HCPCS: 71046; 80053; 80061; 83880; 84443; 85025 ==

== ENCOUNTER 2024-01-03 21:43 | Emergency (ER) | payer MEDICAID, SELFPAY ==
[2024-01-03 21:43] VITALS: BP 173/96; PULSE 68; RESP 15; TEMP 36.4; O2SAT 97; BMI 27.4
--- NOTE | 2024-01-03 21:45 | XRR_ITS ---
PROCEDURE INFORMATION: Exam: XR Chest Exam date and time: 01/03/2024 9:57 PM Age: 63 years old Clinical indication: Shortness of breath; Patient HX: Chest pain; SOB; Anxiety TECHNIQUE: Imaging protocol: Radiologic exam of the chest. Views: 1 view. COMPARISON: CR XR chest 2V* [id number] 12/30/2023 11:25 AM FINDINGS: Lungs: Overall unchanged appearance of widespread interstitial infiltrates throughout both lungs with superimposed chronic interstitial changes. Pleural spaces:No pleural effusion or pneumothorax. Heart/Mediastinum: Mild cardiomegaly. Bones/joints: Unremarkable. XR/XR chest 1V portable [id number] IMPRESSION: As above.
--- NOTE | 2024-01-03 21:56 | W.ED.SOB ---
HPI - SOB/Dyspnea General: Chief Complaint: Shortness of Breath/Dyspnea Stated Complaint: SOB Time Seen by Provider: 01/03/24 21:44 Source: patient Mode of arrival: ambulatory Limitations: no limitations History of Present Illness: HPI Narrative: 63 yo male with a hx of emphysema states he has had dyspnea throughtout the day today. he denies any feever. he has had a slight cough. denies chest pain. pt able to speak full sentences here pulse ox is 95% Associated symptoms: Deny abdominal pain, chest pain, fever(s), nausea or vomiting Related Data Home Medications Medication Instructions Recorded Confirmed aspirin 81 mg chewable tablet 81 mg PO DAILY 07/04/21 12/30/23 (Soraya Chewable Low Dose Aspirin) Previous Rx's Medication Instructions Recorded clonidine HCl 0.1 mg tablet 0.1 mg PO TID PRN hypertensive 03/01/21 emergency SBP >180 DBP > 100 #90 tabs tiotropium bromide 18 mcg capsule 1 cap inhalation DAILY 30 days #30 09/04/23 with inhalation device (Spiriva inhalations with HandiHaler) albuterol sulfate 2.5 mg/3 mL 2.5 mg (3 mL) inhalation Q4H PRN 10/07/23 (0.083 %) solution for nebulization shortness of breath or wheezing #180 mL benzonatate 100 mg capsule 100 mg PO TID PRN cough #90 caps 10/07/23 ipratropium 0.5 mg-albuterol 3 mg 3 ml inhalation Q4H PRN wheezing 10/16/23 (2.5 mg base)/3 mL nebulization #180 mL soln albuterol sulfate 90 mcg/actuation 2 puff inhalation QID PRN 12/30/23 aerosol inhaler shortness of breath or wheezing #8.5 grams atorvastatin 40 mg tablet 40 mg PO .QHS 90 days #90 tabs 12/30/23 fluticasone fur. 200 mcg-umeclid 1 inh inhalation DAILY #60 ea 12/30/23 62.5 mcg-vilant 25 mcg inhalat.powder (Trelegy Ellipta) levofloxacin 500 mg tablet 500 mg PO DAILY 10 days #10 tabs 12/30/23 pantoprazole 40 mg tablet,delayed 40 mg PO DAILY 90 days #90 tabs 12/30/23 release (Protonix) prednisone 10 mg tablets in a dose See Rx Instructions PO PER PKG DIR 12/30/23 pack #21 ea umeclidinium 62.5 mcg-vilanterol 1 inh inhalation DAILY #60 ea 12/30/23 25 mcg/actuation powdr for inhalation (Anoro Ellipta) valsartan 80 mg tablet 80 mg PO DAILY #90 tabs 12/30/23 Allergies Allergy/AdvReac Type Severity Reaction Status Date / Time No Known Allergies Allergy Verified 12/30/23 10:47 Review of Systems Const: Denies: fever(s), chills, body aches or change in appetite ENMT: Denies: throat pain or dental pain Card: Denies: chest pain Resp: Reports: dyspnea GI: Denies: abdominal pain, nausea, vomiting or diarrhea Musc: Denies: neck pain or back pain Skin/Breast: Denies: rash Neuro: Denies: headache(s) PFSH ED PFSH: Medical History GERD (gastroesophageal reflux disease) Fatty infiltration of liver Anxiety Hx of pancreatitis Hx of urethral stricture Hypertension Surgical History Hx of appendectomy Family History Grandmother Cancer Grandfather CAD (coronary artery disease) Hypertension Mother Hypertension Social History Smoking and tobacco/nicotine status: former use of tobacco/nicotine Quit status (tobacco/nicotine): has quit using Year quit tobacco: 2011 Former quit date comment: smoked 1 pack per day x 30 years Second hand smoke exposure: No Alcohol intake: never Substance/Drug Use: never Lives independently: Yes Household members: spouse Housing: House Marital status: Current occupational status: employed Current occupation: self Current gender identity: Male Physical Exam Const: COMMON NORMALS: no acute distress, patient oriented x3 and healthy appearing HENMT: COMMON NORMALS: normocephalic and atraumatic HEAD & SCALP: normocephalic and atraumatic Neck/C-Spine: COMMON NORMALS: full ROM and supple Chest: COMMONS NORMALS: normal inspection of the chest Resp: COMMON NORMALS: normal respiratory effort, No retractions, No use of accessory muscles and clear to auscultation bilaterally AUSCULTATION: clear to auscultation bilaterally Cardio: COMMON NORMALS: regular rate, regular rhythm and No murmurs present (Cardio) RATE: regular rate RHYTHM: regular rhythm Extremity: COMMON NORMALS: normal to inspection and full ROM Neuro: COMMON NORMALS: patient oriented x3, moves all extremities and no focal motor deficits Psych: COMMON NORMALS: mental status grossly normal, Normal thought process present and cooperative THOUGHT PROCESS: Normal thought process present Skin: COMMON NORMALS: no rashes or lesions noted and no wounds GENERAL SKIN EXAM: no rashes or lesions noted Course Vital Signs: Vital signs: Vital Signs Temperature 97.5 F L 01/03/24 21:43 Pulse Rate 90 01/03/24 22:16 Respiratory Rate 18 01/03/24 22:16 Blood Pressure 173/96 01/03/24 21:43 Pulse Oximetry 93 01/03/24 22:16 Oxygen Delivery Me thod Room Air 01/03/24 22:16 MDM - SOB/Dyspnea Medical Decision Making Patient presents for dyspnea likely from his chronic emphysema is no signs of pneumonia his pulse ox here has been 95% has been in no distress he stable for discharge follow-up with PCP return if worsening. Medical Records I reviewed the patient's medical records. Lab Data I reviewed the patient's lab results. 01/03/24 21:54 01/03/24 21:54 Labs/Radiology: Laboratory Results WBC 12.76 10^3/uL (3.29-11.43) H 01/03/24 21:54 RBC 5.07 10^6/uL (3.85-5.65) 01/03/24 21:54 Hgb 14.00 g/dL (11.27-16.99) 01/03/24 21:54 Hct 43.5 % (37-53) 01/03/24 21:54 MCV 85.8 fl (82-101) 01/03/24 21:54 MCH 27.6 pg (27-33) 01/03/24 21:54 MCHC 32.2 g/dL (30-55) 01/03/24 21:54 RDW 14.0 % (12.1-15.1) 01/03/24 21:54 Plt Count 329 10^3/cmm (157-399) 01/03/24 21:54 MPV 9.9 fL (7.4-10.4) 01/03/24 21:54 Neut % (Auto) 69.1 % 01/03/24 21:54 Lymph % (Auto) 15.7 % 01/03/24 21:54 Ceiba % (Auto) 8.6 % 01/03/24 21:54 Eos % (Auto) 4.4 % 01/03/24 21:54 Baso % (Auto) 0.9 % 01/03/24 21:54 Neut # (Auto) 8.82 10^3/uL (1.8-7.7) H 01/03/24 21:54 Lymph # (Auto) 2.0 10^3/uL (0.8-4.8) 01/03/24 21:54 Ceiba # (Auto) 1.1 10^3/uL (0.2-0.9) H 01/03/24 21:54 Eos # (Auto) 0.6 10^3/uL (0.0-0.8) 01/03/24 21:54 Baso # (Auto) 0.1 10^3/uL (0.0-0.1) 01/03/24 21:54 Nucleated RBC % (auto) 0 % 01/03/24 21:54 Nucleated RBCs # 0.0 /100WBC 01/03/24 21:54 Sodium 132 mmol/L (136-145) L 01/03/24 21:54 Potassium 4.5 mmol/L (3.5-5.1) 01/03/24 21:54 Chloride 95 mmol/L (98-107) L 01/03/24 21:54 Carbon Dioxide 27 mmol/L (22-29) 01/03/24 21:54 Anion Gap 14.5 (5-19) 01/03/24 21:54 BUN 15 mg/dL (8-23) 01/03/24 21:54 Creatinine 1.0 mg/dL (0.7-1.2) 01/03/24 21:54 GFR Calculation 75.5 mL/min (90-130) L 01/03/24 21:54 Glucose 108 mg/dL (65-115) 01/03/24 21:54 Calculated Osmolality 275 mOsm/kg (285-295) L 01/03/24 21:54 Calcium 9.1 mg/dL (8.5-10.5) 01/03/24 21:54 Total Bilirubin 0.4 mg/dL (0.15-1.2) 01/03/24 21:54 AST 18 U/L (0-40) 01/03/24 21:54 ALT 19 U/L (0-41) 01/03/24 21:54 Alkaline Phosphatase 131 U/L (40-130) H 01/03/24 21:54 NT-Pro-B Natriuret Pep 384 pg/mL (0-125) H 01/03/24 21:54 Total Protein 7.3 g/dL (6.6-8.7) 01/03/24 21:54 Albumin 4.1 g/dL (3.5-5.2) 01/03/24 21:54 Globulin 3.2 g/dL (1.3-4.6) 01/03/24 21:54 Coronavirus (PCR) Negative (Negative) 01/03/24 22:15 Influenza A (PCR) Negative (Negative) 01/03/24 22:15 Influenza Type B (PCR) Negative (Negative) 01/03/24 22:15 RSV (PCR) Negative (Negative) 01/03/24 22:15 XR interpretation done by ED provider, pending radiology final review ED provider radiology interpretation(s): cxr: no acute change from previous, emphysema Discharge Plan Discharge Patient Disposition: Home Clinical Impression: Acute exacerbation of chronic obstructive airways disease Condition: Stable Prescriptions: No Action clonidine HCl 0.1 mg tablet 0.1 mg PO TID PRN (Reason: hypertensive emergency SBP >180 DBP > 100) Qty: 90 0RF benzonatate 100 mg capsule 100 mg PO TID PRN (Reason: cough) Qty: 90 0RF albuterol sulfate 2.5 mg /3 mL (0.083 %) solution for nebulization 2.5 mg inhalation Q4H PRN (Reason: shortness of breath or wheezing) Qty: 180 1RF aspirin [Soraya Chewable Aspirin] 81 mg tablet,chewable 81 mg PO DAILY tiotropium bromide [Spiriva with HandiHaler] 18 mcg capsule, w/inhalation device 1 cap inhalation DAILY 30 Days Qty: 30 3RF Rx Instructions: puncture 1 cap using device; one dose = 2 inhalations pantoprazole [Protonix] 40 mg tablet,delayed release (DR/EC) 40 mg PO DAILY 90 Days Qty: 90 1RF atorvastatin 40 mg tablet 40 mg PO .QHS 90 Days Qty: 90 1RF albuterol sulfate 90 mcg/actuation HFA aerosol inhaler 2 puff inhalation QID PRN (Reason: shortness of breath or wheezing) Qty: 8.5 6RF valsartan 80 mg tablet 80 mg PO DAILY Qty: 90 1RF Trelegy Ellipta 200-62.5-25 mcg blister with device 1 inh inhalation DAILY Qty: 60 2RF prednisone 10 mg tablets,dose pack See Rx Instructions PO PER PKG DIR Qty: 21 0RF Rx Instructions: PO PER PKG DIR levofloxacin 500 mg tablet 500 mg PO DAILY 10 Days Qty: 10 0RF Anoro Ellipta 62.5-25 mcg/actuation blister with device 1 inh inhalation DAILY Qty: 60 5RF ipratropium-albuterol 0.5 mg-3 mg(2.5 mg base)/3 mL solution for nebulization 3 ml inhalation Q4H PRN (Reason: wheezing) Qty: 180 0RF Discharge Orders: Discharge ED (Routine); Ordered 01/03/24 Ordered By: Vinita Pineda Discharge Diet: Advance as tolerated Discharge Activity: Resume usual activity Patient Instructions: Emphysema (ED), Dyspnea (ED) Coding Level of Care Code ED [employer] for [employer]
[2024-01-03 21:59] LABS: Basophils # 0.1 10^3/uL (0.0-0.1); Basophils % 0.9 %; Eosinophils # 0.6 10^3/uL (0.0-0.8); Eosinophils % 4.4 %; Hematocrit 43.5 % (37-53); Lymphocytes % 15.7 %; Mean Corpuscular HGB Conc 32.2 g/dL (30-55); Mean Corpuscular Hemoglobin 27.6 pg (27-33); Mean Corpuscular Volume 85.8 fl (82-101); Mean Platelet Volume 9.9 fL (7.4-10.4); Monocytes # 1.1 10^3/uL (0.2-0.9); Monocytes % 8.6 %; Neutrophils # 8.82 10^3/uL (1.8-7.7); Neutrophils % 69.1 %; Nucleated Red Blood Cells % 0 %; Platelet Count 329 10^3/cmm (157-399); Red Blood Count 5.07 10^6/uL (3.85-5.65); White Blood Count 12.76 10^3/uL (3.29-11.43)
[2024-01-03 22:10] VITALS: PULSE 85; RESP 18; O2SAT 91
[2024-01-03] MEDS: ipratropium-albuterol 3 mL Neb INHALATION (22:10)
[2024-01-03 22:16] VITALS: PULSE 90; RESP 18; O2SAT 93
[2024-01-03] MEDS: dexamethasone 10 mg/mL INJ IVP (22:17)
[2024-01-03 22:26] LABS: Alanine Aminotransferase 19 U/L (0-41); Albumin Level 4.1 g/dL (3.5-5.2); Alkaline Phosphatase 131 U/L (40-130); Anion Gap 14.5 (5-19); Aspartate Amino Transferase 18 U/L (0-40); Blood Urea Nitrogen 15 mg/dL (8-23); Calcium 9.1 mg/dL (8.5-10.5); Carbon Dioxide 27 mmol/L (22-29); Chloride 95 mmol/L (98-107); Creatinine Clr Calc Pharmacy 71.4787; Globulin 3.2 g/dL (1.3-4.6); Glomerular Filtration Rate 75.5 mL/min (90-130); Glucose 108 mg/dL (65-115); NT Pro B Type Natriuretic Pept 384 pg/mL (0-125); Osmolality Calculated 275 mOsm/kg (285-295); Potassium 4.5 mmol/L (3.5-5.1); Sodium 132 mmol/L (136-145); Total Bilirubin 0.4 mg/dL (0.15-1.2); Total Protein 7.3 g/dL (6.6-8.7)
[2024-01-03 22:56] LABS: Covid PCR NEGATIVE (Negative); Influenza A NEGATIVE (Negative); Influenza B NEGATIVE (Negative); Respiratory Syncytial Virus Ce NEGATIVE (Negative)
[2024-01-03 23:06] VITALS: BP 175/98; PULSE 64; RESP 20; O2SAT 96
== END 2024-01-03 23:20 | disposition home or self-care (01) ==
PROVIDERS: Emergency Provider Emergency Medicine
DX: J44.1 Chronic obstructive pulmonary disease with (acute) exacerbation (principal); Z79.82 Long term (current) use of aspirin; Z11.52 Encounter for screening for COVID-19; Z87.891 Personal history of nicotine dependence; I10 Essential (primary) hypertension
CPT/HCPCS: 0241U; 36415; 71045; 80053; 83880; 85025; 94640; 99285; J1100

== ENCOUNTER 2024-01-26 08:27 | Outpatient (CLI) | payer MEDICAID, SELFPAY ==
[2024-01-26 08:47] VITALS: PULSE 79; RESP 18; O2SAT 94
[2024-01-26] MEDS: albuterol 2.5 mg/3 mL Neb INHALATION (08:47)
[2024-01-26 08:51] VITALS: PULSE 76
== END 2024-01-26 08:28 | disposition home or self-care (01) ==
PROVIDERS: Visit Provider Nurse Practitioner Family
DX: J43.9 Emphysema, unspecified (principal); R94.2 Abnormal results of pulmonary function studies
CPT/HCPCS: 94060; 94729; J7613